=== PATIENT | male | born 1975 | race Two or more races ===

== ENCOUNTER 2017-12-24 08:51 | Day surgery (SDC) | payer MEDICARE, MEDICAID ==
[~2017-12-24] VITALS: Ht 167.6 cm; Wt 88.2 kg
[2017-12-24 09:05] VITALS: BP 107/73
[2017-12-24] MEDS ORDERED: fentaNYL/PF 50MCG/1 ML 2ML syringe ONE (09:31)
[2017-12-24] MEDS ORDERED: LIDOcaine Viscous 15ml cup ONE (09:33)
[2017-12-24] MEDS ORDERED: MIDAZolam 5mg/5ml vial ONE (09:33)
[2017-12-24] MEDS ORDERED: PANT40SU2 PO (09:48)
[2017-12-24 10:18] VITALS: BP 121/73
[2017-12-24 10:28] VITALS: BP 128/66
[2017-12-24 10:38] VITALS: BP 120/52
[2017-12-24 10:48] VITALS: BP 105/81
== END 2017-12-24 10:50 | disposition home or self-care (01) ==
LOC: GI LAB 08:51
PROVIDERS: ATTEND Internal Medicine Gastroenterology
DX: K29.50 Unspecified chronic gastritis without bleeding (principal); K31.89 Other diseases of stomach and duodenum; K21.9 Gastro-esophageal reflux disease without esophagitis; F31.9 Bipolar disorder, unspecified; Z72.89 Other problems related to lifestyle; Z79.899 Other long term (current) drug therapy
CPT/HCPCS: 43239; G0500; J2250; J3010; J7030; 88305; A4620

== ENCOUNTER 2019-03-08 09:32 | Emergency (ER) | payer MEDICARE, MEDICAID ==
[~2019-03-08] VITALS: Ht 170.2 cm; Wt 84.1 kg
[~2019-03-08 09:32] MED LIST: DOCU-148 PO; HYDR-3972 PO; METO-292 PO
[2019-03-08 09:36] VITALS: BP 114/69
[2019-03-08 10:25] LABS: BASOPHILS % (AUTO) 0.4 % (0-1); EOSINOPHILS # (AUTO) 0.1 X10'3 (0-0.9); EOSINOPHILS % (AUTO) 1.2 % (0-6); HEMATOCRIT 27.8 % (42.0-52.0); HEMOGLOBIN 8.6 g/dl (14.0-17.9); LYMPHOCYTES # (AUTO) 1.4 X10'3 (1.1-4.8); LYMPHOCYTES % (AUTO) 12.5 % (21-51); MEAN CORPUSCULAR HEMOGLOBIN 19.7 PG (27.0-31.0); MEAN CORPUSCULAR HGB CONC 31.1 g/dL (33.0-36.5); MEAN CORPUSCULAR VOLUME 63.3 FL (78-98); MEAN PLATELET VOLUME 8.1 FL (7.4-10.4); MONOCYTES # (AUTO) 0.7 X10'3 (0-0.9); MONOCYTES % (AUTO) 6.8 % (2-12); NEUTROPHILS # (AUTO) 8.6 X10'3 (1.8-7.7); NEUTROPHILS % (AUTO) 79.1 % (42-75); PLATELET COUNT 441 X10'3 (140-440); RED BLOOD COUNT 4.39 X10'6 (4.70-6.10); RED CELL DISTRIBUTION WIDTH 30.1 % (11.5-14.5); WHITE BLOOD COUNT 10.9 X10'3 (4.5-11.0)
[2019-03-08] MEDS ORDERED: HYDROcodone/acetaminophen 10/325mg tab PO ONE (10:35)
[2019-03-08] MEDS ORDERED: ciprofloxacin 250mg tablet PO ONE (10:35)
[2019-03-08] MEDS ORDERED: CIPR-230 PO (10:41)
[2019-03-08 12:49] LABS: ANISOCYTOSIS 3+; ELLIPTOCYTES FEW; HYPOCHROMASIA 1+; MICROCYTOSIS 2+; PLATELET ESTIMATE INCREASED; POIKILOCYTOSIS 1+; TARGET CELLS FEW; TEAR DROP CELLS FEW
== END 2019-03-08 11:12 | disposition home or self-care (01) ==
LOC: ER 09:33
DX: T81.49XA Infection following a procedure, other surgical site, initial encounter (principal); B99.8 Other infectious disease; R05 Cough; F12.90 Cannabis use, unspecified, uncomplicated; Z79.2 Long term (current) use of antibiotics; Z79.899 Other long term (current) drug therapy; Y83.8 Other surgical procedures as the cause of abnormal reaction of the patient, or of later complication, without mention of misadventure at the time of the procedure; Y92.89 Other specified places as the place of occurrence of the external cause
CPT/HCPCS: 36415; 85025; 87070; 87077; 87185; 99283

== ENCOUNTER 2021-02-06 09:43 | Outpatient (CLI) | payer MEDICAID ==
[2021-02-06] MEDS ORDERED: iohexol 300mg/ml 100ml inj. ONE (09:56)
== END 2021-02-06 23:59 | disposition home or self-care (01) ==
LOC: 64 CT 09:43
DX: Z08 Encounter for follow-up examination after completed treatment for malignant neoplasm (principal); R91.8 Other nonspecific abnormal finding of lung field; K76.9 Liver disease, unspecified; Z85.038 Personal history of other malignant neoplasm of large intestine
CPT/HCPCS: 71260; Q9967

== ENCOUNTER → 2021-04-05 | Outpatient (CLI) | payer MEDICAID ==
[2021-04-05 10:28] LABS: BASOPHILS % (AUTO) 0.3 % (0-1); EOSINOPHILS # (AUTO) 0.1 X10'3 (0-0.9); EOSINOPHILS % (AUTO) 1.2 % (0-6); HEMOGLOBIN 15.4 g/dl (14.0-17.9); LYMPHOCYTES # (AUTO) 1.4 X10'3 (1.1-4.8); LYMPHOCYTES % (AUTO) 21.6 % (21-51); MEAN CORPUSCULAR HGB CONC 34.3 g/dL (33.0-36.5); MEAN CORPUSCULAR VOLUME 87.5 FL (78-98); MEAN PLATELET VOLUME 8.4 FL (7.4-10.4); MONOCYTES # (AUTO) 0.4 X10'3 (0-0.9); MONOCYTES % (AUTO) 6.6 % (2-12); NEUTROPHILS # (AUTO) 4.5 X10'3 (1.8-7.7); NEUTROPHILS % (AUTO) 70.3 % (42-75); PLATELET COUNT 148 X10'3 (140-440); RED BLOOD COUNT 5.14 X10'6 (4.70-6.10); RED CELL DISTRIBUTION WIDTH 13.6 % (11.5-14.5); WHITE BLOOD COUNT 6.4 X10'3 (4.5-11.0)
[2021-04-05 10:41] LABS: ALANINE AMINOTRANSFERASE 31 U/L (12-78); ALBUMIN 3.9 G/DL (3.4-5.0); ALBUMIN/GLOBULIN RATIO 0.9 (1.1-1.5); ALKALINE PHOSPHATASE 78 IU/L (46-116); ANION GAP 8 (8-16); ASPARTATE AMINO TRANSFERASE 12 U/L (10-37); BILIRUBIN,TOTAL 0.5 MG/DL (0.1-1.0); BLOOD UREA NITROGEN 17 MG/DL (7-18); BUN/CREATININE RATIO 18.7 (5.4-32.0); CALCIUM 8.8 MG/DL (8.5-10.1); CHLORIDE 105 MMOL/L (99-107); CREATININE 0.91 MG/DL (0.60-1.10); GLUCOSE 108 MG/DL (70-104); POTASSIUM 4.2 MMOL/L (3.5-5.1); SODIUM 141 MMOL/L (135-145); TOTAL CARBON DIOXIDE 27.9 MMOL/L (24-32); TOTAL PROTEIN 8.4 G/DL (6.4-8.2); eGFR 90 ML/MIN
== END | disposition home or self-care (01) ==
LOC: LAB 09:54
DX: Z08 Encounter for follow-up examination after completed treatment for malignant neoplasm (principal); Z85.038 Personal history of other malignant neoplasm of large intestine
CPT/HCPCS: 36415; 80053; 82378; 85025

== ENCOUNTER 2021-10-31 09:28 | Outpatient (CLI) | payer MEDICAID ==
[2021-10-31 10:21] LABS: BASOPHILS % (AUTO) 0.2 % (0-1); EOSINOPHILS # (AUTO) 0.1 X10'3 (0-0.9); EOSINOPHILS % (AUTO) 1.1 % (0-6); HEMATOCRIT 41.8 % (42.0-52.0); HEMOGLOBIN 14.5 g/dl (14.0-17.9); LYMPHOCYTES # (AUTO) 1.8 X10'3 (1.1-4.8); LYMPHOCYTES % (AUTO) 31.2 % (21-51); MEAN CORPUSCULAR HGB CONC 34.7 g/dL (33.0-36.5); MEAN CORPUSCULAR VOLUME 86.4 FL (78-98); MEAN PLATELET VOLUME 8.5 FL (7.4-10.4); MONOCYTES # (AUTO) 0.4 X10'3 (0-0.9); MONOCYTES % (AUTO) 6.4 % (2-12); NEUTROPHILS # (AUTO) 3.5 X10'3 (1.8-7.7); NEUTROPHILS % (AUTO) 61.1 % (42-75); PLATELET COUNT 195 X10'3 (140-440); RED BLOOD COUNT 4.83 X10'6 (4.70-6.10); RED CELL DISTRIBUTION WIDTH 13.5 % (11.5-14.5); WHITE BLOOD COUNT 5.7 X10'3 (4.5-11.0)
[2021-10-31 10:33] LABS: TOTAL CARBON DIOXIDE 27.4 MMOL/L (24-32)
[2021-10-31 11:04] LABS: ALANINE AMINOTRANSFERASE 68 U/L (12-78); ALBUMIN 3.5 G/DL (3.4-5.0); ALBUMIN/GLOBULIN RATIO 0.9 (1.1-1.5); ALKALINE PHOSPHATASE 87 IU/L (46-116); ANION GAP 9 (8-16); ASPARTATE AMINO TRANSFERASE 29 U/L (10-37); BILIRUBIN,TOTAL 0.3 MG/DL (0.1-1.0); BLOOD UREA NITROGEN 12 MG/DL (7-18); CALCIUM 8.4 MG/DL (8.5-10.1); CHLORIDE 106 MMOL/L (99-107); CREATININE 0.92 MG/DL (0.60-1.10); GLUCOSE 152 MG/DL (70-104); SODIUM 142 MMOL/L (135-145); TOTAL PROTEIN 7.2 G/DL (6.4-8.2); eGFR 89 ML/MIN
[2021-10-31 11:07] LABS: POTASSIUM 4.2 MMOL/L (3.5-5.1)
== END 2021-10-31 23:59 | disposition home or self-care (01) ==
LOC: LAB 09:28
DX: Z08 Encounter for follow-up examination after completed treatment for malignant neoplasm (principal); Z85.038 Personal history of other malignant neoplasm of large intestine
CPT/HCPCS: 36415; 80053; 82378; 85025

== ENCOUNTER 2021-11-18 17:49 | Emergency (ER) | payer MEDICAID ==
[~2021-11-18] VITALS: Ht 167.6 cm; Wt 99.2 kg
[2021-11-18 18:38] VITALS: BP 135/95
== END 2021-11-18 21:41 | disposition home or self-care (01) ==
LOC: ER 17:50
DX: K92.1 Melena (principal); Z85.038 Personal history of other malignant neoplasm of large intestine
CPT/HCPCS: 99281; 99283

== ENCOUNTER 2024-05-24 12:15 | Outpatient (CLI) | payer MEDICAID | END 2024-05-24 23:59 | disposition home or self-care (01) | LOC: MRI 12:15 | PROVIDERS: ATTEND Chiropractor | DX: M50.90 Cervical disc disorder, unspecified, unspecified cervical region (principal); M48.03 Spinal stenosis, cervicothoracic region; M53.1 Cervicobrachial syndrome; G56.20 Lesion of ulnar nerve, unspecified upper limb | CPT/HCPCS: 72141 ==